=== PATIENT | female | born 1965 | race African-American/Black ===

== ENCOUNTER 2019-06-14 13:59 | Inpatient (IN) | payer MEDICAID, OTHER ==
[~2019-06-14] VITALS: Ht 185.4 cm; Wt 124.3 kg
[~2019-06-14 13:59] MED LIST: HYDR-4094 MT; LEVO750T46 MT
[2019-06-14] MEDS ORDERED: ONDANSETRON HCL 4MG/2ML INJ IV STA (14:37)
[2019-06-14] MEDS ORDERED: PIPERACILLIN/TAZ 3.375G PREMIX 50 ML IV ONE (14:45)
[2019-06-14] MEDS ORDERED: SODIUM CHLORIDE 0.9% 1000ML BAG (SEPSIS BOLUS) IV ONE (14:45)
[2019-06-14] MEDS ORDERED: METRONIDAZOLE 500 MG PREMIX 100 ML IV ONE (14:45)
[2019-06-14 16:15] LABS: HEMATOCRIT. 38.3 % (36.0-48.0); HEMOGLOBIN. 12.7 g/dL (12.0-16.0); MEAN CORPUSCULAR HEMOGLOBIN 29.8 pg (28.0-32.0); MEAN CORPUSCULAR VOLUME 89.6 fL (81.0-99.0); MEAN PLATELET VOLUME 7.9 fl (7.4-10.4); PLATELET 402 x1000/uL (130-400); RED BLOOD CELL COUNT 4.28 mill/uL (4.2-5.4); RED CELL DISTRIBUTION WIDTH 23.3 % (11.6-14.6)
[2019-06-14 16:19] LABS: CHLORIDE 112 mEq/L (98-107); INR 1.7; PROTHROMBIN TIME 17.1 sec (9.6-11.0)
[2019-06-14 16:25] LABS: ETHANOL BLOOD < 10 mg/dL
[2019-06-14 16:42] LABS: PLATELET ESTIMATE INCREASED
[2019-06-14] MEDS ORDERED: CLONIDINE 0.1MG TABLET PO PRN (18:30)
[2019-06-14] MEDS ORDERED: LORAZEPAM 0.5MG TABLET PO PRN (18:30)
[2019-06-14] MEDS ORDERED: ONDANSETRON HCL 4MG/2ML INJ IV PRN (18:30)
[2019-06-14] MEDS ORDERED: MORPHINE SULFATE 2 MG/ML CPJ (NOT FOR IM USE) IV PRN (18:30)
[2019-06-14] MEDS ORDERED: IPRATROPIUM/ALBUTEROL 0.5-3(2.5)MG/3ML NEB INH PRN (18:30)
[2019-06-14 19:07] LABS: HCG SCREEN NEGATIVE
[2019-06-14 20:40] VITALS: BP 102/83
[2019-06-14 21:00] VITALS: BP 102/83
[2019-06-14] MEDS: PIPERACILLIN/TAZOBACTAM 3.375 G in DEXT 5% WATER 100 ML IV SCH (23:39)
[2019-06-14] MEDS: SODIUM CHLORIDE 0.9% 1,000 ML IV SCH (23:40)
[2019-06-15] VITALS: BP 93/51
[2019-06-15] MEDS ORDERED: METR250T PO (01:09)
[2019-06-15] MEDS: PIPERACILLIN/TAZOBACTAM 3.375 G in DEXT 5% WATER 100 ML IV SCH ×4 (03:59→21:15)
[2019-06-15 04:00] VITALS: BP 91/48
[2019-06-15] MEDS: SODIUM CHLORIDE 0.9% 1,000 ML IV SCH ×3 (04:15→21:16)
[2019-06-15 06:43] LABS: LDL CHOLESTEROL 23 mg/dL (5-100)
[2019-06-15 06:45] LABS: HDL CHOLESTEROL 17 mg/dL (40-59)
[2019-06-15 08:00] VITALS: BP 93/43
[2019-06-15 12:00] VITALS: BP 86/44
[2019-06-15 16:00] VITALS: BP 88/44
[2019-06-15 20:38] VITALS: BP 160/83
[2019-06-16] VITALS: BP 93/63
[2019-06-16] MEDS: HYDROCODONE/ACETAMINOPHEN 5/325MG TABLET PO PRN ×2 (00:14→17:12)
[2019-06-16] MEDS: PIPERACILLIN/TAZOBACTAM 3.375 G in DEXT 5% WATER 100 ML IV SCH ×4 (03:59→21:13)
[2019-06-16 04:00] VITALS: BP 91/58
[2019-06-16 08:00] VITALS: BP 84/41
[2019-06-16] MEDS: ONDANSETRON HCL 4MG/2ML INJ IV PRN (08:02)
[2019-06-16] MEDS: SODIUM CHLORIDE 0.9% 1,000 ML IV SCH (10:08)
[2019-06-16 12:00] VITALS: BP 86/44
[2019-06-16] MEDS: MIDODRINE HCL 5MG TABLET PO SCH ×2 (12:21→17:06)
[2019-06-16 16:00] VITALS: BP 90/40
[2019-06-16 20:00] VITALS: BP 92/45
[2019-06-17] VITALS: BP_SYST 89; BP_SYST 92; BP_DIAS 58; BP_DIAS 61
[2019-06-17] MEDS: SODIUM CHLORIDE 0.9% 1,000 ML IV SCH ×2 (00:21→09:02)
[2019-06-17] MEDS: PIPERACILLIN/TAZOBACTAM 3.375 G in DEXT 5% WATER 100 ML IV SCH ×3 (03:49→16:24)
[2019-06-17 04:00] VITALS: BP 93/45
[2019-06-17 08:00] VITALS: BP 87/48
[2019-06-17 08:34] LABS: HEMATOCRIT. 34.8 % (36.0-48.0); HEMOGLOBIN. 11.2 g/dL (12.0-16.0); MEAN CORPUSCULAR HEMOGLOBIN 29.4 pg (28.0-32.0); MEAN CORPUSCULAR VOLUME 91.3 fL (81.0-99.0); MEAN PLATELET VOLUME 7.7 fl (7.4-10.4); PLATELET 356 x1000/uL (130-400); RED BLOOD CELL COUNT 3.81 mill/uL (4.2-5.4); RED CELL DISTRIBUTION WIDTH 23.2 % (11.6-14.6)
[2019-06-17] MEDS: MIDODRINE HCL 5MG TABLET PO SCH ×2 (09:02→18:20)
[2019-06-17] MEDS: ONDANSETRON HCL 4MG/2ML INJ IV PRN (09:28)
[2019-06-17] MEDS ORDERED: POTASSIUM CHLORIDE 20MEQ TABLET SR PO NR (10:00)
[2019-06-17] MEDS ORDERED: POTASSIUM CHLORIDE INJ 40 MEQ in DEXT 5% WATER 250 ML IV NR (10:30)
[2019-06-17 12:00] VITALS: BP 85/48
[2019-06-17 12:04] LABS: PLATELET ESTIMATE NORMAL
[2019-06-17] MEDS ORDERED: MIDODRINE HCL 5MG TABLET PO SCH (13:00)
[2019-06-17 16:00] VITALS: BP 19/42
[2019-06-17] MEDS: HYDROCODONE/ACETAMINOPHEN 5/325MG TABLET PO PRN (16:24)
[2019-06-17] MEDS ORDERED: HETASTARCH/NORMAL SALINE 500 ML PLAST..BAG IV ONE (16:45)
[2019-06-17] MEDS ORDERED: HETASTARCH/NORMAL SALINE 250 ML IV NR (18:00)
[2019-06-17 19:51] LABS: INR 1.9; PROTHROMBIN TIME 18.7 sec (9.6-11.0)
[2019-06-17 20:00] VITALS: BP 85/44
[2019-06-17] MEDS: PIPERACILLIN/TAZOBACTAM 2.25 G in DEXTROSE 5% WATER 50 ML IV SCH (21:40)
[2019-06-18] VITALS (22 sets, daily range): BP systolic 77–147; BP diastolic 31–72
[2019-06-18] MEDS: SODIUM CHLORIDE 0.9% 1,000 ML IV SCH ×2 (01:00→01:30)
[2019-06-18] MEDS: PIPERACILLIN/TAZOBACTAM 2.25 G in DEXTROSE 5% WATER 50 ML IV SCH ×2 (06:17→10:19)
[2019-06-18] MEDS: MIDODRINE HCL 5MG TABLET PO SCH ×3 (08:38→16:17)
[2019-06-18 09:00] LABS: HEMATOCRIT. 33.2 % (36.0-48.0); HEMOGLOBIN. 10.6 g/dL (12.0-16.0); MEAN CORPUSCULAR HEMOGLOBIN 29.5 pg (28.0-32.0); MEAN CORPUSCULAR VOLUME 92.4 fL (81.0-99.0); MEAN PLATELET VOLUME 7.5 fl (7.4-10.4); PLATELET 311 x1000/uL (130-400); RED BLOOD CELL COUNT 3.59 mill/uL (4.2-5.4); RED CELL DISTRIBUTION WIDTH 24.1 % (11.6-14.6)
[2019-06-18] MEDS ORDERED: SODIUM CHLORIDE 0.45% 1,000 ML IV SCH (09:30)
[2019-06-18] MEDS ORDERED: DOPAMINE 400MG/250ML PREMIX 250 ML IV PRN (10:00)
[2019-06-18] MEDS ORDERED: DEXT 5%/0.9% NACL 1,000 ML IV SCH (10:15)
[2019-06-18] MEDS ORDERED: POTASSIUM CHLORIDE INJ 40 MEQ in DEXT 5% WATER 250 ML IV SCH (11:00)
[2019-06-18] MEDS ORDERED: SODIUM BICARBONATE 8.4% 1 MEQ/ML 50ML SYR IV SCH (12:15)
[2019-06-18] MEDS: ONDANSETRON HCL 4MG/2ML INJ IV PRN (12:40)
[2019-06-18 13:28] LABS: BG BASE EXCESS -13.3 mmol/L (-2.0-2.0); BG CARBOXYHEMOGLOBIN 0.1 % (0.5-1.5); BG DEOXYHEMOGLOBIN 2.9 % (0.0-5.0); BG FRACTION INSPIRED OXYGEN 21; BG HCO3 ACT 12.3 mmol/L (22.0-26.0); BG METHEMOGLOBIN 0.4 % (0.0-1.5); BG OXYGEN SATURATION 97.1 % (92.0-98.5); BG OXYHEMOGLOBIN 96.6 % (94.0-97.0); BG PCO2 28.2 mmHg (35.0-45.0); BG PH 7.259 (7.350-7.450); BG PO2 97.8 mmHg (75.0-100.0); BG SAMPLE SITE RIGHT RADIAL; BG TOTAL HEMOGLOBIN 12.3 g/dL (12.0-18.0); BG VENT MODE ROOM AIR
[2019-06-18] MEDS: SODIUM BICARBONATE 100 MEQ in DEXTROSE 5% WATER 1,000 ML IV SCH (14:32)
[2019-06-18 14:38] LABS: PLATELET ESTIMATE NORMAL
[2019-06-18] MEDS ORDERED: PIPERACILLIN/TAZOBACTAM 2.25 G in DEXTROSE 5% WATER 50 ML IV SCH (16:00)
[2019-06-18] MEDS: METOCLOPRAMIDE HCL 5MG TABLET PO SCH ×2 (16:16→21:10)
[2019-06-18] MEDS: BLOOD SUGAR DIAGNOSTIC STRIP TEST SCH ×3 (16:21→23:51)
[2019-06-18] MEDS ORDERED: POTASSIUM CHLORIDE 20MEQ TABLET SR PO NR (20:30)
[2019-06-19] VITALS (49 sets, daily range): BP systolic 85–135; BP diastolic 43–90
[2019-06-19] MEDS: ONDANSETRON HCL 4MG/2ML INJ IV PRN ×3 (01:15→16:41)
[2019-06-19] MEDS: SODIUM BICARBONATE 100 MEQ in DEXTROSE 5% WATER 1,000 ML IV SCH ×3 (01:15→23:00)
[2019-06-19] MEDS: BLOOD SUGAR DIAGNOSTIC STRIP TEST SCH ×5 (04:27→20:00)
[2019-06-19 05:43] LABS: HEMATOCRIT. 31.9 % (36.0-48.0); HEMOGLOBIN. 10.4 g/dL (12.0-16.0); MEAN CORPUSCULAR HEMOGLOBIN 29.4 pg (28.0-32.0); MEAN CORPUSCULAR VOLUME 89.8 fL (81.0-99.0); MEAN PLATELET VOLUME 7.7 fl (7.4-10.4); PLATELET 311 x1000/uL (130-400); RED BLOOD CELL COUNT 3.55 mill/uL (4.2-5.4); RED CELL DISTRIBUTION WIDTH 23.4 % (11.6-14.6)
[2019-06-19 05:58] LABS: PHOSPHORUS 4.1 mg/dL (2.5-4.9)
[2019-06-19] MEDS: METOCLOPRAMIDE HCL 5MG TABLET PO SCH (06:13)
[2019-06-19] MEDS ORDERED: LIDOCAINE HCL 1% 20ML VIAL (Pyxis) INJ ONE (08:53)
[2019-06-19] MEDS: MIDODRINE HCL 5MG TABLET PO SCH ×3 (09:01→17:36)
[2019-06-19 09:06] LABS: PLATELET ESTIMATE P
[2019-06-19 09:36] LABS: PARTIAL THROMBOPLASTIN TIME 44.3 sec (23.4-31.0)
[2019-06-19] MEDS ORDERED: POTASSIUM CHLORIDE INJ 40 MEQ in DEXT 5% WATER 250 ML IV NR (10:00)
[2019-06-19] MEDS ORDERED: MAGNESIUM 2 G PREMIX 50 ML IV NR (10:00)
[2019-06-19 12:11] LABS: HEPATITIS B SURFACE AB < 3.1 mIU/mL
[2019-06-19 12:22] LABS: HEPATITIS B SURFACE ANTIGEN NEGATIVE
[2019-06-19 12:52] LABS: HEPATITIS A AB IGM NEGATIVE (NEGATIVE)
[2019-06-19] MEDS: LOPERAMIDE HCL 2MG CAPSULE PO PRN (13:33)
[2019-06-19] MEDS ORDERED: METOCLOPRAMIDE HCL 10MG/2ML VIAL IV PRN (19:15)
[2019-06-20] VITALS (44 sets, daily range): BP systolic 74–122; BP diastolic 46–75
[2019-06-20 05:30] LABS: INR 1.9; PARTIAL THROMBOPLASTIN TIME 41.9 sec (23.4-31.0); PROTHROMBIN TIME 18.7 sec (9.6-11.0)
[2019-06-20 05:35] LABS: HEMATOCRIT. 29.3 % (36.0-48.0); HEMOGLOBIN. 9.8 g/dL (12.0-16.0); MEAN CORPUSCULAR HEMOGLOBIN 29.8 pg (28.0-32.0); MEAN CORPUSCULAR VOLUME 89.2 fL (81.0-99.0); MEAN PLATELET VOLUME 7.9 fl (7.4-10.4); PLATELET 260 x1000/uL (130-400); RED BLOOD CELL COUNT 3.28 mill/uL (4.2-5.4); RED CELL DISTRIBUTION WIDTH 22.7 % (11.6-14.6)
[2019-06-20] MEDS ORDERED: POTASSIUM CHLORIDE 20MEQ/PACKET PO NR (07:15)
[2019-06-20] MEDS: MIDODRINE HCL 5MG TABLET PO SCH ×3 (08:20→17:56)
[2019-06-20] MEDS: DEXT 5%/0.2% NACL 1,000 ML IV SCH (08:25)
[2019-06-20] MEDS: BLOOD SUGAR DIAGNOSTIC STRIP TEST SCH ×5 (08:45→20:00)
[2019-06-20] MEDS: ONDANSETRON HCL 4MG/2ML INJ IV PRN ×2 (09:09→19:32)
[2019-06-20 09:49] LABS: PLATELET ESTIMATE NORMAL
[2019-06-20] MEDS: LOPERAMIDE HCL 2MG CAPSULE PO PRN (18:01)
[2019-06-21] VITALS: BP 116/79
[2019-06-21 02:00] VITALS: BP 104/65
[2019-06-21] MEDS: DEXT 5%/0.2% NACL 1,000 ML IV SCH ×2 (02:05→19:24)
[2019-06-21] MEDS: BLOOD SUGAR DIAGNOSTIC STRIP TEST SCH ×6 (04:00→20:32)
[2019-06-21 08:02] LABS: HEMATOCRIT. 29.5 % (36.0-48.0); HEMOGLOBIN. 9.6 g/dL (12.0-16.0); MEAN CORPUSCULAR HEMOGLOBIN 29.1 pg (28.0-32.0); MEAN CORPUSCULAR VOLUME 89.8 fL (81.0-99.0); PLATELET 230 x1000/uL (130-400); RED BLOOD CELL COUNT 3.29 mill/uL (4.2-5.4); RED CELL DISTRIBUTION WIDTH 22.3 % (11.6-14.6)
[2019-06-21] MEDS: MIDODRINE HCL 5MG TABLET PO SCH ×4 (08:40→18:12)
[2019-06-21] MEDS: ONDANSETRON HCL 4MG/2ML INJ IV PRN (08:41)
[2019-06-21 17:53] LABS: PLATELET ESTIMATE NORMAL
[2019-06-21 20:00] VITALS: BP 102/66
[2019-06-21 22:00] VITALS: BP 90/58
[2019-06-21 23:30] VITALS: BP 107/69
[2019-06-22] VITALS (37 sets, daily range): BP systolic 92–123; BP diastolic 54–87
[2019-06-22] MEDS: BLOOD SUGAR DIAGNOSTIC STRIP TEST SCH ×6 (04:10→20:05)
[2019-06-22] MEDS: MIDODRINE HCL 5MG TABLET PO SCH ×3 (08:38→17:36)
[2019-06-22 10:11] LABS: HEMOGLOBIN. 8.7 g/dL (12.0-16.0); MEAN CORPUSCULAR VOLUME 89.8 fL (81.0-99.0); MEAN PLATELET VOLUME 8.4 fl (7.4-10.4); PLATELET 190 x1000/uL (130-400); RED CELL DISTRIBUTION WIDTH 22.2 % (11.6-14.6)
[2019-06-22 13:10] LABS: PLATELET ESTIMATE NORMAL
[2019-06-22] MEDS: DEXT 5%/0.2% NACL 1,000 ML IV SCH (15:38)
[2019-06-22] MEDS: ONDANSETRON HCL 4MG/2ML INJ IV PRN (17:36)
[2019-06-22] MEDS: ACETAMINOPHEN 325MG TABLET PO PRN (17:37)
[2019-06-22] MEDS ORDERED: METOCLOPRAMIDE HCL 10MG/2ML VIAL IV PRN (18:30)
[2019-06-23] VITALS: BP 102/68
[2019-06-23 00:30] VITALS: BP 106/64
[2019-06-23] MEDS: BLOOD SUGAR DIAGNOSTIC STRIP TEST SCH ×7 (00:54→23:35)
[2019-06-23 04:00] VITALS: BP 122/77
[2019-06-23] MEDS: DEXT 5%/0.2% NACL 1,000 ML IV SCH ×2 (05:52→23:35)
[2019-06-23 06:00] VITALS: BP 122/77
[2019-06-23 07:43] LABS: HEMATOCRIT. 28.7 % (36.0-48.0); HEMOGLOBIN. 9.5 g/dL (12.0-16.0); MEAN CORPUSCULAR VOLUME 90.4 fL (81.0-99.0); MEAN PLATELET VOLUME 8.3 fl (7.4-10.4); PLATELET 187 x1000/uL (130-400); RED BLOOD CELL COUNT 3.17 mill/uL (4.2-5.4); RED CELL DISTRIBUTION WIDTH 21.7 % (11.6-14.6)
[2019-06-23] MEDS ORDERED: LEVOFLOXACIN MT SCH (09:00)
[2019-06-23] MEDS: MIDODRINE HCL 5MG TABLET PO SCH ×3 (11:36→16:27)
[2019-06-23] MEDS: METRONIDAZOLE 250MG TABLET PO SCH ×4 (11:36→16:31)
[2019-06-23 12:39] LABS: PLATELET ESTIMATE NORMAL
[2019-06-23 19:34] VITALS: BP 125/70
[2019-06-23 19:51] VITALS: BP 125/70
[2019-06-24 00:16] VITALS: BP 109/67
[2019-06-24] MEDS: BLOOD SUGAR DIAGNOSTIC STRIP TEST SCH ×5 (04:11→20:00)
[2019-06-24 04:23] VITALS: BP 128/86
[2019-06-24 08:00] VITALS: BP 108/71
[2019-06-24] MEDS: ONDANSETRON HCL 4MG/2ML INJ IV PRN ×3 (08:30→17:09)
[2019-06-24] MEDS: MIDODRINE HCL 5MG TABLET PO SCH ×2 (08:30→12:31)
[2019-06-24] MEDS: METRONIDAZOLE 250MG TABLET PO SCH ×3 (09:00→17:09)
[2019-06-24 09:56] LABS: HEMATOCRIT. 29.5 % (36.0-48.0); HEMOGLOBIN. 9.7 g/dL (12.0-16.0); MEAN CORPUSCULAR HEMOGLOBIN 29.8 pg (28.0-32.0); MEAN CORPUSCULAR VOLUME 90.4 fL (81.0-99.0); MEAN PLATELET VOLUME 8.2 fl (7.4-10.4); PLATELET 206 x1000/uL (130-400); RED BLOOD CELL COUNT 3.26 mill/uL (4.2-5.4); RED CELL DISTRIBUTION WIDTH 21.7 % (11.6-14.6)
[2019-06-24 12:00] VITALS: BP 117/83
[2019-06-24] MEDS: DEXT 5%/0.2% NACL 1,000 ML IV SCH ×2 (12:25→20:35)
[2019-06-24 13:23] LABS: NUCLEATED RED BLOOD CELLS 1 /100 WBC; PLATELET ESTIMATE NORMAL
[2019-06-24 16:00] VITALS: BP 129/58
[2019-06-24 20:00] VITALS: BP 109/58
[2019-06-24] MEDS: METOCLOPRAMIDE HCL 10MG/2ML VIAL IV PRN (20:19)
[2019-06-25] VITALS (21 sets, daily range): BP systolic 97–128; BP diastolic 55–78
[2019-06-25] MEDS: ACETAMINOPHEN 325MG TABLET PO PRN (00:14)
[2019-06-25] MEDS: ONDANSETRON HCL 4MG/2ML INJ IV PRN (00:23)
[2019-06-25] MEDS: BLOOD SUGAR DIAGNOSTIC STRIP TEST SCH ×6 (04:00→20:00)
[2019-06-25 06:13] LABS: HEMATOCRIT. 26.2 % (36.0-48.0); HEMOGLOBIN. 8.8 g/dL (12.0-16.0); MEAN CORPUSCULAR HEMOGLOBIN 30.3 pg (28.0-32.0); MEAN CORPUSCULAR VOLUME 90.2 fL (81.0-99.0); MEAN PLATELET VOLUME 8.5 fl (7.4-10.4); PLATELET 177 x1000/uL (130-400); RED CELL DISTRIBUTION WIDTH 21.5 % (11.6-14.6)
[2019-06-25 09:42] LABS: INR 1.8; PROTHROMBIN TIME 17.9 sec (9.6-11.0)
[2019-06-25] MEDS ORDERED: LIDOCAINE HCL 1% 20ML VIAL (Pyxis) INJ ONE (09:53)
[2019-06-25] MEDS ORDERED: HEPARIN 1000 UNITS/ML 10ML ONE (09:53)
[2019-06-25] MEDS ORDERED: SODIUM BICARBONATE 4% (2.4MEQ) 5ML VIAL IV ONE (09:53)
[2019-06-25] MEDS ORDERED: FENTANYL CITRATE/PF 50MCG/ML 2ML VIAL ONE (09:55)
[2019-06-25 10:03] LABS: PLATELET ESTIMATE NORMAL
[2019-06-25] MEDS: POTASSIUM CHLORIDE 20MEQ TABLET SR PO NR ×2 (11:00→12:39)
[2019-06-25] MEDS ORDERED: FENTANYL CITRATE/PF 50MCG/ML 2ML VIAL IV ONE (11:00)
[2019-06-25] MEDS: DEXT 5%/0.2% NACL 1,000 ML IV SCH (22:14)
[2019-06-26] VITALS: BP 114/77
[2019-06-26 04:00] VITALS: BP 119/78
[2019-06-26] MEDS: BLOOD SUGAR DIAGNOSTIC STRIP TEST SCH ×6 (04:00→20:00)
[2019-06-26 06:59] LABS: HEMATOCRIT. 25.8 % (36.0-48.0); HEMOGLOBIN. 8.7 g/dL (12.0-16.0); MEAN CORPUSCULAR HEMOGLOBIN 30.2 pg (28.0-32.0); MEAN CORPUSCULAR VOLUME 89.6 fL (81.0-99.0); MEAN PLATELET VOLUME 8.3 fl (7.4-10.4); PLATELET 191 x1000/uL (130-400); RED BLOOD CELL COUNT 2.88 mill/uL (4.2-5.4)
[2019-06-26 08:00] VITALS: BP_SYST 116; BP_SYST 128; BP_DIAS 58; BP_DIAS 88
[2019-06-26] MEDS: HYDROCODONE/ACETAMINOPHEN 10/325MG TABLET PO PRN (08:16)
[2019-06-26] MEDS: METOCLOPRAMIDE HCL 10MG/2ML VIAL IV PRN (08:16)
[2019-06-26 10:45] LABS: PLATELET ESTIMATE NORMAL
[2019-06-26 12:00] VITALS: BP 90/63
[2019-06-26] MEDS: DEXT 5%/0.2% NACL 1,000 ML IV SCH (13:57)
[2019-06-26 20:00] VITALS: BP 90/54
[2019-06-27] VITALS: BP 101/62
[2019-06-27 04:00] VITALS: BP 97/64
[2019-06-27] MEDS: BLOOD SUGAR DIAGNOSTIC STRIP TEST SCH ×6 (04:00→20:00)
[2019-06-27] MEDS: DEXT 5%/0.2% NACL 1,000 ML IV SCH (06:59)
[2019-06-27 08:00] VITALS: BP 113/76
[2019-06-27] MEDS: HYDROCODONE/ACETAMINOPHEN 10/325MG TABLET PO PRN (08:55)
[2019-06-27] MEDS ORDERED: POTASSIUM CHLORIDE 20MEQ/PACKET PO NR (09:45)
[2019-06-27 12:00] VITALS: BP 76/45
[2019-06-27] MEDS ORDERED: SODIUM CHLORIDE 0.9% 250 ML IV ONE (13:30)
[2019-06-27 16:00] VITALS: BP 99/55
[2019-06-27 20:00] VITALS: BP 99/66
[2019-06-28] VITALS: BP 91/76
[2019-06-28 04:00] VITALS: BP 86/45
[2019-06-28] MEDS: BLOOD SUGAR DIAGNOSTIC STRIP TEST SCH ×6 (04:00→20:00)
[2019-06-28 08:00] VITALS: BP 107/62
[2019-06-28] MEDS: MIDODRINE HCL 5MG TABLET PO SCH ×3 (09:09→16:26)
[2019-06-28 12:00] VITALS: BP 111/72
[2019-06-28 12:21] LABS: HEMATOCRIT. 23.4 % (36.0-48.0); HEMOGLOBIN. 7.8 g/dL (12.0-16.0); MEAN CORPUSCULAR HEMOGLOBIN 30.4 pg (28.0-32.0); MEAN CORPUSCULAR VOLUME 90.8 fL (81.0-99.0); MEAN PLATELET VOLUME 8.9 fl (7.4-10.4); PLATELET 163 x1000/uL (130-400); RED BLOOD CELL COUNT 2.58 mill/uL (4.2-5.4); RED CELL DISTRIBUTION WIDTH 20.9 % (11.6-14.6)
[2019-06-28 13:32] LABS: PLATELET ESTIMATE NORMAL
[2019-06-28] MEDS ORDERED: HEPARIN SODIUM 1,000 UNIT/1ML VIAL IV NR (14:45)
[2019-06-28] MEDS: ONDANSETRON HCL 4MG/2ML INJ IV PRN (15:10)
[2019-06-28 16:00] VITALS: BP 104/72
[2019-06-28] MEDS: ACETAMINOPHEN 325MG TABLET PO PRN (16:26)
[2019-06-28 20:00] VITALS: BP 103/59
[2019-06-29] VITALS: BP 109/56
[2019-06-29 04:00] VITALS: BP 107/71
[2019-06-29] MEDS: BLOOD SUGAR DIAGNOSTIC STRIP TEST SCH ×6 (04:00→20:00)
[2019-06-29 08:00] VITALS: BP 126/86
[2019-06-29] MEDS: SODIUM CHLORIDE 0.45% 1,000 ML IV SCH ×2 (09:03→21:50)
[2019-06-29] MEDS: ACETAMINOPHEN 325MG TABLET PO PRN ×2 (09:03→20:40)
[2019-06-29] MEDS: MIDODRINE HCL 5MG TABLET PO SCH ×3 (09:04→18:01)
[2019-06-29 10:23] LABS: HEMATOCRIT. 25.4 % (36.0-48.0); HEMOGLOBIN. 8.4 g/dL (12.0-16.0); MEAN CORPUSCULAR HEMOGLOBIN 30.2 pg (28.0-32.0); MEAN CORPUSCULAR VOLUME 91.2 fL (81.0-99.0); MEAN PLATELET VOLUME 8.6 fl (7.4-10.4); PLATELET 166 x1000/uL (130-400); RED BLOOD CELL COUNT 2.78 mill/uL (4.2-5.4)
[2019-06-29 14:21] LABS: NUCLEATED RED BLOOD CELLS 1 /100 WBC; PLATELET ESTIMATE NORMAL
[2019-06-29 16:00] VITALS: BP 92/52
[2019-06-29 20:00] VITALS: BP 115/75
[2019-06-30] VITALS: BP 98/67
[2019-06-30 04:00] VITALS: BP 110/80
[2019-06-30] MEDS: BLOOD SUGAR DIAGNOSTIC STRIP TEST SCH ×6 (04:00→20:00)
[2019-06-30 08:00] VITALS: BP 92/57
[2019-06-30] MEDS: MIDODRINE HCL 5MG TABLET PO SCH ×3 (09:20→18:00)
[2019-06-30 09:33] LABS: HEMATOCRIT. 24.7 % (36.0-48.0); HEMOGLOBIN. 8.3 g/dL (12.0-16.0); MEAN CORPUSCULAR HEMOGLOBIN 30.8 pg (28.0-32.0); MEAN CORPUSCULAR VOLUME 91.6 fL (81.0-99.0); MEAN PLATELET VOLUME 8.3 fl (7.4-10.4); PLATELET 183 x1000/uL (130-400); RED CELL DISTRIBUTION WIDTH 20.7 % (11.6-14.6)
[2019-06-30] MEDS: SODIUM CHLORIDE 0.45% 1,000 ML IV SCH (11:10)
[2019-06-30 12:00] VITALS: BP 115/74
[2019-06-30 20:00] VITALS: BP 128/79
[2019-06-30] MEDS: EPOETIN ALFA 10000UNITS/ML VIAL SUBCUT SCH (21:00)
[2019-07-01] VITALS: BP 134/64
[2019-07-01] MEDS: SODIUM CHLORIDE 0.45% 1,000 ML IV SCH (00:30)
[2019-07-01 04:00] VITALS: BP 112/68
[2019-07-01] MEDS: BLOOD SUGAR DIAGNOSTIC STRIP TEST SCH ×6 (04:00→20:00)
[2019-07-01 04:54] LABS: PLATELET ESTIMATE NORMAL
[2019-07-01 08:00] VITALS: BP 92/60
[2019-07-01] MEDS: ACETAMINOPHEN 325MG TABLET PO PRN (09:37)
[2019-07-01] MEDS: MIDODRINE HCL 5MG TABLET PO SCH ×3 (09:43→17:14)
[2019-07-01 12:00] VITALS: BP 103/72
[2019-07-01 16:00] VITALS: BP 90/60
[2019-07-01 16:21] LABS: MEAN CORPUSCULAR HEMOGLOBIN 30.6 pg (28.0-32.0); MEAN CORPUSCULAR VOLUME 94.1 fL (81.0-99.0); MEAN PLATELET VOLUME 7.9 fl (7.4-10.4); PLATELET 125 x1000/uL (130-400); RED BLOOD CELL COUNT 1.58 mill/uL (4.2-5.4); RED CELL DISTRIBUTION WIDTH 20.7 % (11.6-14.6)
[2019-07-01 16:33] LABS: HEMOGLOBIN. 4.8 g/dL (12.0-16.0)
[2019-07-01 16:34] LABS: HEMATOCRIT. 14.9 % (36.0-48.0)
[2019-07-01 18:45] LABS: NUCLEATED RED BLOOD CELLS 1 /100 WBC; PLATELET ESTIMATE NORMAL
[2019-07-01 20:00] VITALS: BP 105/76
[2019-07-01 22:10] LABS: HEMATOCRIT 25.2 % (36.0-48.0); HEMOGLOBIN 8.6 g/dL (12.0-16.0); MEAN CORPUSCULAR HEMOGLOBIN 30.8 pg (28.0-32.0); MEAN CORPUSCULAR VOLUME 90.2 fL (81.0-99.0); PLATELET 174 x1000/uL (130-400); RED BLOOD CELL COUNT 2.79 mill/uL (4.2-5.4); RED CELL DISTRIBUTION WIDTH 20.5 % (11.6-14.6)
[2019-07-02] VITALS: BP 121/90
[2019-07-02 04:00] VITALS: BP 95/64
[2019-07-02] MEDS: BLOOD SUGAR DIAGNOSTIC STRIP TEST SCH ×6 (04:00→20:00)
[2019-07-02 07:55] LABS: HEMATOCRIT. 26.3 % (36.0-48.0); HEMOGLOBIN. 8.7 g/dL (12.0-16.0); MEAN CORPUSCULAR HEMOGLOBIN 30.5 pg (28.0-32.0); MEAN CORPUSCULAR VOLUME 91.6 fL (81.0-99.0); MEAN PLATELET VOLUME 7.9 fl (7.4-10.4); PLATELET 118 x1000/uL (130-400); RED BLOOD CELL COUNT 2.87 mill/uL (4.2-5.4); RED CELL DISTRIBUTION WIDTH 20.4 % (11.6-14.6)
[2019-07-02 08:00] VITALS: BP 127/85
[2019-07-02] MEDS: MIDODRINE HCL 5MG TABLET PO SCH ×3 (09:00→17:00)
[2019-07-02] MEDS ORDERED: LEVOFLOXACIN 500MG PREMIX 100 ML IV NR (10:00)
[2019-07-02] MEDS ORDERED: CEFTRIAXONE 1 G PREMIX 50 ML IV SCH (10:00)
[2019-07-02] MEDS: ACETAMINOPHEN 325MG TABLET PO PRN (10:35)
[2019-07-02 11:50] VITALS: BP 96/59
[2019-07-02] MEDS: METRONIDAZOLE 500 MG PREMIX 100 ML IV SCH ×2 (15:09→19:05)
[2019-07-02 16:00] VITALS: BP 108/70
[2019-07-02 20:28] VITALS: BP 110/70
[2019-07-03] VITALS: BP 109/68
[2019-07-03] MEDS: BLOOD SUGAR DIAGNOSTIC STRIP TEST SCH ×6 (00:41→20:00)
[2019-07-03] MEDS: ACETAMINOPHEN 325MG TABLET PO PRN (01:15)
[2019-07-03] MEDS: METRONIDAZOLE 500 MG PREMIX 100 ML IV SCH ×3 (03:29→16:10)
[2019-07-03 04:00] VITALS: BP 130/73
[2019-07-03] MEDS: SODIUM CHLORIDE 0.45% 1,000 ML IV SCH (04:00)
[2019-07-03 06:55] LABS: MEAN CORPUSCULAR HEMOGLOBIN 30.1 pg (28.0-32.0); MEAN CORPUSCULAR VOLUME 91.7 fL (81.0-99.0); MEAN PLATELET VOLUME 7.7 fl (7.4-10.4); PLATELET 170 x1000/uL (130-400); RED BLOOD CELL COUNT 2.18 mill/uL (4.2-5.4); RED CELL DISTRIBUTION WIDTH 20.4 % (11.6-14.6)
[2019-07-03 08:00] VITALS: BP 106/67
[2019-07-03 08:00] LABS: HEMOGLOBIN. 6.6 g/dL (12.0-16.0)
[2019-07-03 10:35] LABS: PLATELET ESTIMATE SLIGHTLY DECREASED
[2019-07-03] MEDS: MIDODRINE HCL 5MG TABLET PO SCH ×3 (11:25→17:00)
[2019-07-03 12:58] LABS: PLATELET ESTIMATE NORMAL
[2019-07-03 13:19] LABS: HEMATOCRIT 25.2 % (36.0-48.0); HEMOGLOBIN 8.2 g/dL (12.0-16.0)
[2019-07-03] MEDS: LOPERAMIDE HCL 2MG CAPSULE PO PRN (14:03)
[2019-07-03] MEDS: ONDANSETRON HCL 4MG/2ML INJ IV PRN (14:03)
[2019-07-03] MEDS: EPOETIN ALFA 10000UNITS/ML VIAL SUBCUT SCH (21:00)
[2019-07-03] MEDS ORDERED: MIDODRINE HCL 5MG TABLET PO NR (21:45)
[2019-07-04] VITALS: BP 92/59
[2019-07-04] MEDS: METRONIDAZOLE 500 MG PREMIX 100 ML IV SCH ×4 (00:10→21:27)
[2019-07-04] MEDS: SODIUM CHLORIDE 0.45% 1,000 ML IV SCH ×3 (00:11→21:27)
[2019-07-04 04:00] VITALS: BP 86/49
[2019-07-04] MEDS: BLOOD SUGAR DIAGNOSTIC STRIP TEST SCH ×7 (04:00→23:54)
[2019-07-04] MEDS: LEVOFLOXACIN 250MG PREMIX 50 ML IV SCH (10:39)
[2019-07-04 10:41] LABS: HEMATOCRIT. 24.8 % (36.0-48.0); MEAN CORPUSCULAR HEMOGLOBIN 29.5 pg (28.0-32.0); MEAN CORPUSCULAR VOLUME 91.2 fL (81.0-99.0); MEAN PLATELET VOLUME 7.8 fl (7.4-10.4); PLATELET 235 x1000/uL (130-400); RED BLOOD CELL COUNT 2.72 mill/uL (4.2-5.4)
[2019-07-04] MEDS: ACETAMINOPHEN 325MG TABLET PO PRN (11:18)
[2019-07-04 12:20] VITALS: BP 136/76
[2019-07-04 12:33] LABS: PLATELET ESTIMATE NORMAL
[2019-07-04] MEDS: MIDODRINE HCL 5MG TABLET PO SCH ×3 (13:00→17:00)
[2019-07-04 16:22] VITALS: BP 99/45
[2019-07-04 20:00] VITALS: BP 113/71
[2019-07-05] VITALS: BP 101/63
[2019-07-05 04:00] VITALS: BP 103/65
[2019-07-05] MEDS: BLOOD SUGAR DIAGNOSTIC STRIP TEST SCH ×5 (04:00→20:00)
[2019-07-05 04:30] VITALS: BP 103/65
[2019-07-05] MEDS: METRONIDAZOLE 500 MG PREMIX 100 ML IV SCH ×2 (05:08→14:19)
[2019-07-05] MEDS: ACETAMINOPHEN 325MG TABLET PO PRN ×2 (05:08→12:10)
[2019-07-05 08:00] VITALS: BP 93/59
[2019-07-05 08:33] LABS: HEMATOCRIT. 21.6 % (36.0-48.0); HEMOGLOBIN. 7.2 g/dL (12.0-16.0); MEAN CORPUSCULAR HEMOGLOBIN 30.5 pg (28.0-32.0); MEAN CORPUSCULAR VOLUME 91.6 fL (81.0-99.0); MEAN PLATELET VOLUME 7.8 fl (7.4-10.4); PLATELET 212 x1000/uL (130-400); RED BLOOD CELL COUNT 2.36 mill/uL (4.2-5.4); RED CELL DISTRIBUTION WIDTH 20.1 % (11.6-14.6)
[2019-07-05] MEDS: MIDODRINE HCL 5MG TABLET PO SCH ×3 (09:50→16:48)
[2019-07-05] MEDS: SODIUM CHLORIDE 0.45% 1,000 ML IV SCH ×2 (11:10→16:51)
[2019-07-05 12:00] VITALS: BP 122/79
[2019-07-05 19:47] LABS: PLATELET ESTIMATE NORMAL
[2019-07-05 20:00] VITALS: BP 96/58
[2019-07-06] VITALS: BP 123/74
[2019-07-06] MEDS: METRONIDAZOLE 500 MG PREMIX 100 ML IV SCH ×4 (00:03→23:01)
[2019-07-06] MEDS: SODIUM CHLORIDE 0.45% 1,000 ML IV SCH ×2 (00:04→13:50)
[2019-07-06] MEDS: EPOETIN ALFA 10000UNITS/ML VIAL SUBCUT SCH (00:07)
[2019-07-06] MEDS: BLOOD SUGAR DIAGNOSTIC STRIP TEST SCH ×6 (00:08→20:00)
[2019-07-06] MEDS: ONDANSETRON HCL 4MG/2ML INJ IV PRN (03:06)
[2019-07-06 04:00] VITALS: BP 113/79
[2019-07-06 07:22] LABS: BASOPHILS % 0.2 % (0.0-2.0); EOSINOPHILS % 0.5 % (0.0-5.0); HEMATOCRIT. 24.2 % (36.0-48.0); LYMPHOCYTES % 13.3 % (20.0-50.0); MEAN CORPUSCULAR HEMOGLOBIN 30.1 pg (28.0-32.0); MEAN CORPUSCULAR VOLUME 90.5 fL (81.0-99.0); MEAN PLATELET VOLUME 8.3 fl (7.4-10.4); MONOCYTES % 12.6 % (2.0-8.0); NEUTROPHILS % 73.4 % (40.0-76.0); PLATELET 184 x1000/uL (130-400); RED BLOOD CELL COUNT 2.67 mill/uL (4.2-5.4); RED CELL DISTRIBUTION WIDTH 19.3 % (11.6-14.6)
[2019-07-06 08:50] VITALS: BP 100/63
[2019-07-06] MEDS: MIDODRINE HCL 5MG TABLET PO SCH ×3 (09:33→17:45)
[2019-07-06] MEDS ORDERED: POTASSIUM CHLORIDE 20MEQ TABLET SR PO SCH (09:45)
[2019-07-06] MEDS: LEVOFLOXACIN 250MG PREMIX 50 ML IV SCH (10:39)
[2019-07-06 12:36] VITALS: BP 121/76
[2019-07-06 13:33] LABS: PHOSPHORUS 0.6 mg/dL (2.5-4.9)
[2019-07-06] MEDS: METOCLOPRAMIDE HCL 10MG/2ML VIAL IV SCH ×2 (13:38→18:00)
[2019-07-06 16:24] VITALS: BP 111/62
[2019-07-06 20:00] VITALS: BP 104/62
[2019-07-07] VITALS: BP 110/58
[2019-07-07] MEDS: BLOOD SUGAR DIAGNOSTIC STRIP TEST SCH ×6 (00:01→20:18)
[2019-07-07] MEDS: METOCLOPRAMIDE HCL 10MG/2ML VIAL IV SCH ×2 (00:06→06:08)
[2019-07-07 04:00] VITALS: BP 107/57
[2019-07-07] MEDS: SODIUM CHLORIDE 0.45% 1,000 ML IV SCH ×2 (04:14→16:30)
[2019-07-07] MEDS: METRONIDAZOLE 500 MG PREMIX 100 ML IV SCH ×3 (06:08→22:33)
[2019-07-07 07:32] LABS: HEMATOCRIT. 21.6 % (36.0-48.0); HEMOGLOBIN. 7.1 g/dL (12.0-16.0); MEAN CORPUSCULAR HEMOGLOBIN 30.3 pg (28.0-32.0); MEAN PLATELET VOLUME 8.1 fl (7.4-10.4); PLATELET 197 x1000/uL (130-400); RED BLOOD CELL COUNT 2.35 mill/uL (4.2-5.4); RED CELL DISTRIBUTION WIDTH 19.2 % (11.6-14.6)
[2019-07-07 08:00] VITALS: BP 102/59
[2019-07-07] MEDS: MIDODRINE HCL 5MG TABLET PO SCH ×3 (08:49→17:00)
[2019-07-07] MEDS ORDERED: MAGNESIUM 2 G PREMIX 50 ML IV SCH (11:00)
[2019-07-07 12:00] VITALS: BP 108/64
[2019-07-07 12:35] LABS: NUCLEATED RED BLOOD CELLS 1 /100 WBC; PLATELET ESTIMATE NORMAL
[2019-07-07 16:00] VITALS: BP 110/67
[2019-07-07] MEDS ORDERED: VANCOMYCIN 2,000 MG in DEXT 5% WATER 500 ML IV NR (18:00)
[2019-07-07] MEDS: POTASSIUM PHOS,M-BASIC-D-BASIC 30 MMOL in DEXT 5% WATER 500 ML IV SCH (20:00)
[2019-07-07 20:31] VITALS: BP 96/63
[2019-07-07] MEDS: ACETAMINOPHEN 325MG TABLET PO PRN (20:42)
[2019-07-07] MEDS: EPOETIN ALFA 10000UNITS/ML VIAL SUBCUT SCH (21:00)
[2019-07-08] MEDS: BLOOD SUGAR DIAGNOSTIC STRIP TEST SCH ×8 (00:03→23:59)
[2019-07-08 00:44] VITALS: BP 95/59
[2019-07-08 04:00] VITALS: BP 101/56
[2019-07-08] MEDS: ONDANSETRON HCL 4MG/2ML INJ IV PRN (05:13)
[2019-07-08] MEDS: METRONIDAZOLE 500 MG PREMIX 100 ML IV SCH ×3 (06:42→23:04)
[2019-07-08] MEDS: SODIUM CHLORIDE 0.45% 1,000 ML IV SCH (06:45)
[2019-07-08 08:00] VITALS: BP 92/63
[2019-07-08] MEDS: LEVOFLOXACIN 250MG PREMIX 50 ML IV SCH (09:31)
[2019-07-08] MEDS: METOCLOPRAMIDE HCL 10MG/2ML VIAL IV PRN (09:31)
[2019-07-08] MEDS: MIDODRINE HCL 5MG TABLET PO SCH ×4 (09:38→16:48)
[2019-07-08 09:54] LABS: PHOSPHORUS 0.4 mg/dL (2.5-4.9)
[2019-07-08] MEDS ORDERED: VANCOMYCIN 2,000 MG in DEXT 5% WATER 500 ML IV SCH (11:00)
[2019-07-08 12:00] VITALS: BP 96/58
[2019-07-08] MEDS: ACETAMINOPHEN 325MG TABLET PO PRN (13:45)
[2019-07-08 14:17] LABS: BASOPHILS % 0.7 % (0.0-2.0); EOSINOPHILS % 0.6 % (0.0-5.0); HEMATOCRIT. 28.1 % (36.0-48.0); HEMOGLOBIN. 9.2 g/dL (12.0-16.0); LYMPHOCYTES % 13.1 % (20.0-50.0); MEAN CORPUSCULAR HEMOGLOBIN 29.8 pg (28.0-32.0); MEAN CORPUSCULAR VOLUME 91.5 fL (81.0-99.0); MEAN PLATELET VOLUME 8.8 fl (7.4-10.4); MONOCYTES % 13.2 % (2.0-8.0); NEUTROPHILS % 72.4 % (40.0-76.0); PLATELET 233 x1000/uL (130-400); RED BLOOD CELL COUNT 3.08 mill/uL (4.2-5.4); RED CELL DISTRIBUTION WIDTH 19.5 % (11.6-14.6)
[2019-07-08 16:00] VITALS: BP 104/54
[2019-07-08] MEDS ORDERED: POTASSIUM PHOS,M-BASIC-D-BASIC 30 MMOL in SODIUM CHLORIDE 0.9% 500 ML IV NR (16:00)
[2019-07-08] MEDS: POTASSIUM PHOS,M-BASIC-D-BASIC 30 MMOL in DEXT 5% WATER 500 ML IV SCH (16:53)
[2019-07-08 20:00] VITALS: BP 87/53
[2019-07-09] VITALS: BP 98/60
[2019-07-09] MEDS: METOCLOPRAMIDE HCL 10MG/2ML VIAL IV PRN (02:17)
[2019-07-09] MEDS: LOPERAMIDE HCL 2MG CAPSULE PO PRN ×2 (02:18→15:53)
[2019-07-09] MEDS: ACETAMINOPHEN 325MG TABLET PO PRN ×2 (02:18→16:59)
[2019-07-09 04:00] VITALS: BP 83/48
[2019-07-09] MEDS: BLOOD SUGAR DIAGNOSTIC STRIP TEST SCH ×6 (04:17→23:44)
[2019-07-09] MEDS: METRONIDAZOLE 500 MG PREMIX 100 ML IV SCH ×3 (05:52→21:24)
[2019-07-09 08:00] VITALS: BP 90/50
[2019-07-09 09:30] LABS: HEMOGLOBIN. 8.1 g/dL (12.0-16.0); MEAN CORPUSCULAR HEMOGLOBIN 30.8 pg (28.0-32.0); MEAN CORPUSCULAR VOLUME 91.2 fL (81.0-99.0); MEAN PLATELET VOLUME 8.3 fl (7.4-10.4); PLATELET 179 x1000/uL (130-400); RED BLOOD CELL COUNT 2.63 mill/uL (4.2-5.4); RED CELL DISTRIBUTION WIDTH 19.4 % (11.6-14.6)
[2019-07-09 09:43] LABS: PHOSPHORUS 1.6 mg/dL (2.5-4.9)
[2019-07-09 10:03] LABS: PLATELET ESTIMATE NORMAL
[2019-07-09] MEDS: MIDODRINE HCL 5MG TABLET PO SCH ×3 (10:38→16:59)
[2019-07-09] MEDS: DEXT 5%/0.45% NACL 1000ML 1,000 ML IV SCH ×2 (10:38→23:10)
[2019-07-09] MEDS: DEXTROSE 50% WATER 50ML SYRINGE IV PRN ×2 (10:48→17:00)
[2019-07-09] MEDS ORDERED: MAGNESIUM 2 G PREMIX 50 ML IV NR (12:00)
[2019-07-09] MEDS ORDERED: POTASSIUM PHOS,M-BASIC-D-BASIC 20 MMOL in DEXT 5% WATER 243.3333 ML IV NR (12:00)
[2019-07-09 12:37] VITALS: BP 126/37
[2019-07-09 13:14] LABS: ATYPICAL pANCA <1:20 titer (Neg:<1:20); SACCHAROMYCES CEREVISIAE IGG <20.0 Units (0.0-24.9)
[2019-07-09] MEDS: LACTOBACILLUS GG CAPSULE PO SCH (15:53)
[2019-07-09 16:57] VITALS: BP 105/55
[2019-07-09] MEDS: METOCLOPRAMIDE HCL 10MG/2ML VIAL IV SCH ×2 (16:59→23:10)
[2019-07-09] MEDS ORDERED: METOCLOPRAMIDE HCL 10MG/2ML VIAL IV SCH (18:00)
[2019-07-09 20:27] VITALS: BP 127/95
[2019-07-10 00:24] VITALS: BP 102/56
[2019-07-10 04:00] VITALS: BP 96/50
[2019-07-10] MEDS: BLOOD SUGAR DIAGNOSTIC STRIP TEST SCH ×5 (04:37→20:00)
[2019-07-10] MEDS: METOCLOPRAMIDE HCL 10MG/2ML VIAL IV SCH ×3 (06:14→17:26)
[2019-07-10 08:09] LABS: HEMOGLOBIN. 8.1 g/dL (12.0-16.0); MEAN CORPUSCULAR HEMOGLOBIN 29.8 pg (28.0-32.0); MEAN CORPUSCULAR VOLUME 96.3 fL (81.0-99.0); MEAN PLATELET VOLUME 8.3 fl (7.4-10.4); PLATELET 166 x1000/uL (130-400); RED CELL DISTRIBUTION WIDTH 19.9 % (11.6-14.6)
[2019-07-10 08:24] VITALS: BP 144/50
[2019-07-10 08:37] LABS: PHOSPHORUS 2.5 mg/dL (2.5-4.9)
[2019-07-10 09:06] LABS: SACCHAROMYCES CEREVISIAE IGM 25.5 Units (0.0-24.9)
[2019-07-10 10:41] LABS: NUCLEATED RED BLOOD CELLS 1 /100 WBC
[2019-07-10 10:42] LABS: PLATELET ESTIMATE NORMAL
[2019-07-10] MEDS: LACTOBACILLUS GG CAPSULE PO SCH (11:05)
[2019-07-10] MEDS: MIDODRINE HCL 5MG TABLET PO SCH ×3 (11:06→17:25)
[2019-07-10 12:00] VITALS: BP 110/50
[2019-07-10] MEDS: AZTREONAM 1 G in DEXTROSE 5% WATER 50 ML IV SCH (14:01)
[2019-07-10] MEDS: DEXT 5%/0.45% NACL 1000ML 1,000 ML IV SCH (14:01)
[2019-07-10 14:56] VITALS: BP 102/49
[2019-07-10] MEDS ORDERED: VANCOMYCIN 1250MG in DEXTROSE 5% WATER 250ML IV NR (15:00)
[2019-07-10 20:00] VITALS: BP 105/64
[2019-07-10] MEDS: EPOETIN ALFA 10000UNITS/ML VIAL SUBCUT SCH (21:00)
[2019-07-11 00:05] VITALS: BP 110/51
[2019-07-11] MEDS: AZTREONAM 1 G in DEXTROSE 5% WATER 50 ML IV SCH ×2 (01:03→15:48)
[2019-07-11] MEDS: METOCLOPRAMIDE HCL 10MG/2ML VIAL IV SCH ×4 (01:03→18:50)
[2019-07-11 04:00] VITALS: BP 95/53
[2019-07-11] MEDS: BLOOD SUGAR DIAGNOSTIC STRIP TEST SCH ×5 (04:44→16:00)
[2019-07-11] MEDS: DEXT 5%/0.45% NACL 1000ML 1,000 ML IV SCH (04:44)
[2019-07-11 08:00] VITALS: BP 90/45
[2019-07-11 12:00] VITALS: BP 97/54
[2019-07-11] MEDS: LACTOBACILLUS GG CAPSULE PO SCH (12:49)
[2019-07-11] MEDS: MIDODRINE HCL 5MG TABLET PO SCH ×3 (12:50→18:51)
[2019-07-11 13:08] LABS: HEMATOCRIT. 25.5 % (36.0-48.0); HEMOGLOBIN. 8.3 g/dL (12.0-16.0); MEAN CORPUSCULAR HEMOGLOBIN 29.7 pg (28.0-32.0); MEAN CORPUSCULAR VOLUME 91.7 fL (81.0-99.0); MEAN PLATELET VOLUME 8.7 fl (7.4-10.4); PLATELET 165 x1000/uL (130-400); RED BLOOD CELL COUNT 2.78 mill/uL (4.2-5.4); RED CELL DISTRIBUTION WIDTH 19.5 % (11.6-14.6)
[2019-07-11 13:47] LABS: NUCLEATED RED BLOOD CELLS 1 /100 WBC; PLATELET ESTIMATE NORMAL
[2019-07-11] MEDS ORDERED: POTASSIUM CHLORIDE 20MEQ TABLET SR PO NR ×2 (15:00)
[2019-07-11] MEDS ORDERED: POTASSIUM CHLORIDE INJ 40 MEQ in DEXT 5% WATER 250 ML IV ONE (15:00)
[2019-07-11 16:00] VITALS: BP 95/32
[2019-07-11] MEDS ORDERED: POTASSIUM CHLORIDE INJ 40 MEQ in DEXT 5% WATER 250 ML IV NR (16:00)
== END 2019-07-11 21:30 | DRG 720 ==
LOC: ER 13:59 → 5WST 17:44 → EDBEDREQ 17:48 → EDBEDREQSVC 17:48 → ENRESERV 19:23 → CVICU 06-18 11:05 → 3WST 06-20 20:34 → 6EST 06-22 23:58 → 6WST 07-02 11:38
PROVIDERS: ADMIT Internal Medicine; ATTEND Internal Medicine
PROC: 05HY33Z Insertion of Infusion Device into Upper Vein, Percutaneous Approach (ICD-10-PCS; 2019-06-18)
PROC: B54MZZA Ultrasonography of Right Upper Extremity Veins, Guidance (ICD-10-PCS; 2019-06-18)
PROC: 5A1D70Z Performance of Urinary Filtration, Intermittent, Less than 6 Hours Per Day (ICD-10-PCS; 2019-06-19)
PROC: 30233N1 Transfusion of Nonautologous Red Blood Cells into Peripheral Vein, Percutaneous Approach (ICD-10-PCS; 2019-06-19)
PROC: 02HV33Z Insertion of Infusion Device into Superior Vena Cava, Percutaneous Approach (ICD-10-PCS; 2019-06-19)
PROC: B548ZZA Ultrasonography of Superior Vena Cava, Guidance (ICD-10-PCS; 2019-06-19)
PROC: 5A1D70Z Performance of Urinary Filtration, Intermittent, Less than 6 Hours Per Day (ICD-10-PCS; 2019-06-21)
PROC: 5A1D70Z Performance of Urinary Filtration, Intermittent, Less than 6 Hours Per Day (ICD-10-PCS; 2019-06-23)
PROC: 5A1D70Z Performance of Urinary Filtration, Intermittent, Less than 6 Hours Per Day (ICD-10-PCS; 2019-06-25)
PROC: 0JH63XZ Insertion of Tunneled Vascular Access Device into Chest Subcutaneous Tissue and Fascia, Percutaneous Approach (ICD-10-PCS; 2019-06-25)
PROC: 02H633Z Insertion of Infusion Device into Right Atrium, Percutaneous Approach (ICD-10-PCS; 2019-06-25)
PROC: B2141ZZ Fluoroscopy of Right Heart using Low Osmolar Contrast (ICD-10-PCS; 2019-06-25)
PROC: 02PYX3Z Removal of Infusion Device from Great Vessel, External Approach (ICD-10-PCS; 2019-06-25)
PROC: 02HV33Z Insertion of Infusion Device into Superior Vena Cava, Percutaneous Approach (ICD-10-PCS; 2019-06-25)
PROC: B5181ZA Fluoroscopy of Superior Vena Cava using Low Osmolar Contrast, Guidance (ICD-10-PCS; 2019-06-25)
PROC: 5A1D70Z Performance of Urinary Filtration, Intermittent, Less than 6 Hours Per Day (ICD-10-PCS; 2019-06-28)
PROC: 5A1D70Z Performance of Urinary Filtration, Intermittent, Less than 6 Hours Per Day (ICD-10-PCS; 2019-06-30)
PROC: 02HV33Z Insertion of Infusion Device into Superior Vena Cava, Percutaneous Approach (ICD-10-PCS; 2019-07-01)
PROC: B5181ZA Fluoroscopy of Superior Vena Cava using Low Osmolar Contrast, Guidance (ICD-10-PCS; 2019-07-01)
PROC: B548ZZA Ultrasonography of Superior Vena Cava, Guidance (ICD-10-PCS; 2019-07-01)
PROC: 5A1D70Z Performance of Urinary Filtration, Intermittent, Less than 6 Hours Per Day (ICD-10-PCS; 2019-07-03)
PROC: 5A1D70Z Performance of Urinary Filtration, Intermittent, Less than 6 Hours Per Day (ICD-10-PCS; 2019-07-05)
PROC: 30233K1 Transfusion of Nonautologous Frozen Plasma into Peripheral Vein, Percutaneous Approach (ICD-10-PCS; 2019-07-05)
PROC: 5A1D70Z Performance of Urinary Filtration, Intermittent, Less than 6 Hours Per Day (ICD-10-PCS; 2019-07-07)
PROC: 5A1D70Z Performance of Urinary Filtration, Intermittent, Less than 6 Hours Per Day (ICD-10-PCS; 2019-07-09)
PROC: 5A1D70Z Performance of Urinary Filtration, Intermittent, Less than 6 Hours Per Day (ICD-10-PCS; 2019-07-10)
PROC: 5A1D70Z Performance of Urinary Filtration, Intermittent, Less than 6 Hours Per Day (ICD-10-PCS; principal; 2019-07-11)
DX: A41.9 Sepsis, unspecified organism (principal); N17.0 Acute kidney failure with tubular necrosis; E43 Unspecified severe protein-calorie malnutrition; I13.2 Hypertensive heart and chronic kidney disease with heart failure and with stage 5 chronic kidney disease, or end stage renal disease; C85.90 Non-Hodgkin lymphoma, unspecified, unspecified site; D68.9 Coagulation defect, unspecified; E87.2 Acidosis; E66.01 Morbid (severe) obesity due to excess calories; N18.6 End stage renal disease; I50.20 Unspecified systolic (congestive) heart failure; K76.0 Fatty (change of) liver, not elsewhere classified; D64.9 Anemia, unspecified; E16.2 Hypoglycemia, unspecified; E87.6 Hypokalemia; K56.7 Ileus, unspecified; K83.8 Other specified diseases of biliary tract; K86.89 Other specified diseases of pancreas; L30.9 Dermatitis, unspecified; Z71.89 Other specified counseling; Z79.899 Other long term (current) drug therapy; Z68.36 Body mass index [BMI] 36.0-36.9, adult
CPT/HCPCS: 36415; 36556; 36558; 36573; 36600; 71045; 74018; 74176; 76700; 76937; 77001; 80048; 80061; 80076; 80202; 80320; 82270; 82375; 82805; 82962; 83036; 83605; 83735; 83880; 84100; 84145; 84443; 84484; 84703; 85014; 85018; 85027; 85044; 86256; 86671; 86705; 86706; 86709; 86803; 86850; 86900; 86920; 86927; 87015; 87045; 87340; 87427; 87449; 87493; 89055; 93005; 93306; 96365; 96366; 96375; 97110; 97116; 97162; 97530; 99291; A6261; C1725; C1750; C1752; C1769; C1887; J0696; J0885; J1265; J1642; J1644; J1956; J2270; J2405; J2543; J2765; J3010; J3370; J3475; J3480; J3490; J7030; J7040; J7060; J7070; J8597; P9017; P9021; A4315; G0480